=== PATIENT | female | born 1980 ===

== ENCOUNTER 2025-02-22 17:44 | Emergency (ER) | payer MEDICAID ==
[~2025-02-22] VITALS: Ht 160 cm; Wt 72.3 kg
[2025-02-22 17:47] VITALS: BP 121/74; PULSE 83; RESP 16; O2SAT 96
[2025-02-22 18:20] LABS: LEUKOCYTE ESTERASE ,URINE NEGATIVE (Neg); NITRITES, URINE NEGATIVE (Neg); OCCULT BLOOD,URINE TRACE-INTACT (Neg)
[2025-02-22 18:22] LABS: UA COLLECTION TYPE CLN CATCH MIDSTREAM
[2025-02-22] MEDS ORDERED: SENN-29 PO (18:25)
[2025-02-22] MEDS ORDERED: DOCU-148 PO (18:25)
--- NOTE | 2025-02-22 18:25 | Physician Documentation ---
History of Present Illness ~ Chief Complaint: Abdominal Pain Stated Complaint: UTI OR IMPACTION Time Seen by MD: 17:57 Source: patient Mode of Arrival: POV Exam Limitations: no limitations HPI 44-year-old female with concerns that she is experiencing bladder spasms and pressure due to UTI although denies any dysuria urgency or frequency. Patient has history of constipation and takes a stool softener daily requesting a refill of her stool softener as she does not want to become impacted. No significant history, abdominal pain, nausea vomiting or diarrhea. Medication Reconciliation Scheduled Docusate Sodium (Colace), 1 CAP PO Q12H Sennosides/Docusate Sodium (Senokot-S Tablet), 1 TAB PO Q12H Past Medical History Past Medical History: Constipation Past Surgical History: noncontributory Lives with: Family Lives In: Home Review of Systems All Other Systems at this time: Reviewed and Negative Genitourinary: Reports: see HPI Physical Exam Vital Signs: RN Vital Signs have been reviewed: Yes, Temperature: 98.5, Source: Temporal, Heart Rate: 83, Respiratory Rate: 16, BP: 121/74, Pulse Oximetry: 96, Weight: 72.300 Physical Exam General: Alert, no apparent distress. Neck: Full range of motion. Respiratory: Lungs clear, no respiratory distress. Chest: No accessory muscle use. Cardiovascular: Regular rate and rhythm, no murmurs. Gastrointestinal: Soft, nontender, nondistended. Bowels sounds present. No flank pain no CVA tenderness Extremities: Normal range of motion, no deformity. Neurologic: Oriented x4. Psychiatric: Normal mood and affect. Skin: Normal color, warm and dry. No edema, no ecchymosis. Progress Results/Orders Results/Orders Orders - FANNY PETERS P[employer] Ua W/Microscopic, Cult If Ind (02/22/25 17:52) Vital Signs 02/22/25 17:47 Temp 98.5 Pulse 83 Resp 16 B/P (MAP) 121/74 Pulse Ox 96 Laboratory Tests Test 02/22/25 17:52 Urine Specimen Description Cln catch midstream Urine Color Yellow Urine Clarity Clear Urine pH 6.0 Urine Specific [place] >=1.030 Urine Protein Negative Urine Glucose (UA) Negative Urine Ketones Negative Urine Occult Blood Trace-intact Urine Nitrite Negative Urine Bilirubin Negative Urine Urobilinogen 0.2 Urine Leukocyte Esterase Negative Volume Urine Centrifuged 10 ml Urine Comment Medical Decision Making Findings Concerns for UTI, pyelonephritis, constipation, bowel obstruction. Patient's vital signs reassuring moist mucous membranes. UA to evaluate for bacteria. We will refill patient's stool softener as she had a bowel movement today and yesterday. Patient's UA was unremarkable for any bacterial findings. Discussed chronic constipation out of Colace refilled medications discussed following up with primary care patient's abdomen is soft patient does experience intermittent abdominal cramping discussed hydration close monitoring and follow up Departure Time of Disposition: 18:29 Disposition: HOME / SELF CARE / HOMELESS Impression: Primary Impression: Constipation Condition: Stable Discharge Instructions: Chronic Constipation, Constipation, Adult, [id number] Additional Instructions: You medications prescribed including refilling Colace the other stools softener/laxative as for when the daily stool softeners do not work and if no bowel movement in 2 days to start taking that until achieved follow up with primary care for further follow up on chronic idiopathic constipation. Rest and stay well hydrated Referrals: NO PRIMARY CARE PROVIDER (PCP) Prescriptions Sennosides/Docusate Sodium (Senokot-S Tablet) 8.6 Mg-50 Mg Tablet 1 TAB PO Q12H for 15 Days, #30 TAB 0 Refills Prov: FANNY PETERS NP 02/22/25 Docusate Sodium (Colace) 100 Mg Capsule 1 CAP PO Q12H for 30 Days, #60 CAP 0 Refills Prov: FANNY PETERS NP 02/22/25 Education Educated: Patient Educated regarding: diagnosis, treatment, need for follow up Signature Scribe Signature: No scribe Attestation: The note accurately reflects work and decisions made by me.Fanny GUZMAN 02/22/25 18:25 FANNY PETERS NP Feb 22, 2025 18:25
[2025-02-22 18:58] LABS: SQUAMOUS EPITHELIAL CELL,UR FEW /LPF (FEW)
[2025-02-22] MEDS: magnesium hydroxide 30ml (MOM) UD suspension PO ONE (19:03)
[2025-02-22] MEDS: docusate sod 100mg capsule PO ONE (19:03)
[2025-02-22 19:10] VITALS: TEMP 98.5
== END 2025-02-22 19:11 | disposition home or self-care (01) ==
LOC: ER 17:46
DX: K59.00 Constipation, unspecified (principal)
CPT/HCPCS: 81001; 99283; A6222; J7030; A6258; A6449